=== PATIENT | female | born 1955 | race Caucasian/White ===

== ENCOUNTER 2019-03-31 13:08 | Emergency (ER) | payer MEDICARE ==
[~2019-03-31] VITALS: Ht 162.6 cm; Wt 81.0 kg
--- NOTE | 2019-03-31 14:22 | NUR ---
PROPERTY LOSS INSURANCE CLAIM ADJUSTER AT BEDSIDE ,SIGNIFICANT OTHER AT BEDSIDE .PT DENIES ANY CONCERN ,VITALS STABLE.
[2019-03-31] MEDS ORDERED: ketorolac trometh inj. 60 MG/2 ML VIAL IM ONE (14:40)
[2019-03-31 14:58] VITALS: BP 143/79
== END 2019-03-31 14:55 | disposition home or self-care (01) ==
LOC: ER 13:11
DX: M66.0 Rupture of popliteal cyst (principal); M25.562 Pain in left knee; M79.662 Pain in left lower leg
CPT/HCPCS: 93971; 96372; 99284; J1885

== ENCOUNTER 2021-03-07 10:35 | Emergency (ER) | payer MEDICARE ==
[~2021-03-07] VITALS: Ht 160 cm; Wt 84.5 kg
[2021-03-07 13:17] LABS: CLARITY,URINE CLEAR (Clear); COLOR,URINE Yellow (Yellow); UA COLLECTION TYPE CLN CATCH MIDSTREAM
[2021-03-07 13:18] LABS: GLUCOSE, URINE NEGATIVE (Neg); KETONES,URINE NEGATIVE (Neg); LEUKOCYTE ESTERASE ,URINE TRACE (Neg); NITRITES, URINE NEGATIVE (Neg); OCCULT BLOOD,URINE NEGATIVE (Neg); PROTEIN,URINE NEGATIVE (Neg); UROBILINOGEN,URINE 0.2 E.U/dL (0.2-1.0)
[2021-03-07 13:22] LABS: BASOPHILS % (AUTO) 1.1 % (0-1); EOSINOPHILS # (AUTO) 0.2 X10'3 (0-0.9); EOSINOPHILS % (AUTO) 3.8 % (0-6); HEMATOCRIT 37.3 % (35.0-45.0); HEMOGLOBIN 12.5 g/dl (12.0-16.0); LYMPHOCYTES # (AUTO) 1.5 X10'3 (1.1-4.8); LYMPHOCYTES % (AUTO) 34.8 % (21-51); MEAN CORPUSCULAR HEMOGLOBIN 28.6 PG (27.0-31.0); MEAN CORPUSCULAR HGB CONC 33.4 g/dL (33.0-36.5); MEAN CORPUSCULAR VOLUME 85.6 FL (78-98); MEAN PLATELET VOLUME 8.4 FL (7.4-10.4); MONOCYTES # (AUTO) 0.6 X10'3 (0-0.9); MONOCYTES % (AUTO) 12.8 % (2-12); NEUTROPHILS # (AUTO) 2.1 X10'3 (1.8-7.7); NEUTROPHILS % (AUTO) 47.5 % (42-75); PLATELET COUNT 257 X10'3 (140-440); RED BLOOD COUNT 4.35 X10'6 (4.20-5.60); RED CELL DISTRIBUTION WIDTH 13.9 % (11.5-14.5); WHITE BLOOD COUNT 4.4 X10'3 (4.5-11.0)
[2021-03-07 13:30] LABS: BACTERIA,URINE 2+ /HPF (Neg); RBC,URINE NONE SEEN /HPF (0-2); SQUAMOUS EPITHELIAL CELL,UR MODERATE /LPF (FEW); WBC,URINE 0-4 /HPF (0-4)
[2021-03-07 13:34] LABS: ALANINE AMINOTRANSFERASE 27 U/L (12-78); ALBUMIN/GLOBULIN RATIO 1.1 (1.1-1.5); ALKALINE PHOSPHATASE 88 IU/L (46-116); ANION GAP 7 (8-16); ASPARTATE AMINO TRANSFERASE 28 U/L (10-37); BILIRUBIN,TOTAL 0.3 MG/DL (0.1-1.0); BLOOD UREA NITROGEN 21 MG/DL (7-18); BUN/CREATININE RATIO 23.9 (6.6-38.0); CALCIUM 9.1 MG/DL (8.5-10.1); CHLORIDE 108 MMOL/L (99-107); CREATININE 0.88 MG/DL (0.40-0.90); GLUCOSE 114 MG/DL (70-104); LIPASE 144 U/L (73-393); POTASSIUM 3.6 MMOL/L (3.5-5.1); SODIUM 143 MMOL/L (135-145); TOTAL CARBON DIOXIDE 28.4 MMOL/L (24-32); TOTAL PROTEIN 7.6 G/DL (6.4-8.2); eGFR 64 ML/MIN
[2021-03-07] MEDS ORDERED: pantoprazole 40mg Tablet.DR PO ONE (15:40)
[2021-03-07] MEDS ORDERED: famotidine 20mg tablet PO ONE (15:40)
[2021-03-07] MEDS ORDERED: PANT-47 PO (16:23)
[2021-03-07 16:41] VITALS: BP 148/80
== END 2021-03-07 16:42 | disposition home or self-care (01) ==
LOC: ER 10:35
DX: K80.20 Calculus of gallbladder without cholecystitis without obstruction (principal); R07.81 Pleurodynia; R07.89 Other chest pain; R10.13 Epigastric pain; I10 Essential (primary) hypertension; E78.00 Pure hypercholesterolemia, unspecified; M19.90 Unspecified osteoarthritis, unspecified site; Z88.8 Allergy status to other drugs, medicaments and biological substances; Z79.899 Other long term (current) drug therapy; Z95.5 Presence of coronary angioplasty implant and graft
CPT/HCPCS: 36415; 71045; 76700; 80053; 81001; 83690; 83880; 84484; 85025; 87088; 93005; 99285

== ENCOUNTER 2021-06-03 10:46 | Emergency (ER) | payer MEDICARE ==
[~2021-06-03] VITALS: Ht 160 cm; Wt 81.0 kg
[~2021-06-03 10:46] MED LIST: PANT-47 PO
[2021-06-03 11:53] VITALS: BP 130/84
== END 2021-06-03 14:21 | disposition home or self-care (01) ==
LOC: ER 10:48
DX: I83.891 Varicose veins of right lower extremity with other complications (principal); M19.90 Unspecified osteoarthritis, unspecified site; E78.00 Pure hypercholesterolemia, unspecified; I10 Essential (primary) hypertension; Z98.890 Other specified postprocedural states; Z88.8 Allergy status to other drugs, medicaments and biological substances
CPT/HCPCS: 93971; 99284

== ENCOUNTER 2022-08-24 14:31 | Outpatient (CLI) | payer MEDICARE | END 2022-08-24 23:59 | disposition home or self-care (01) | LOC: RAD 14:31 | PROVIDERS: ATTEND Physician Assistant | DX: M47.26 Other spondylosis with radiculopathy, lumbar region (principal); M48.061 Spinal stenosis, lumbar region without neurogenic claudication; M43.16 Spondylolisthesis, lumbar region; M12.88 Other specific arthropathies, not elsewhere classified, other specified site; Z98.890 Other specified postprocedural states | CPT/HCPCS: 72131 ==

== ENCOUNTER 2023-03-24 03:34 | Emergency (ER) | payer MEDICARE ==
[~2023-03-24] VITALS: Ht 160 cm; Wt 87.3 kg
[2023-03-24 04:08] LABS: BASOPHILS # (AUTO) 0.1 X10'3 (0-0.2); BASOPHILS % (AUTO) 1.7 % (0-1); EOSINOPHILS # (AUTO) 0.4 X10'3 (0-0.9); EOSINOPHILS % (AUTO) 7.8 % (0-6); HEMATOCRIT 33.4 % (35.0-45.0); HEMOGLOBIN 10.6 g/dl (12.0-16.0); LYMPHOCYTES # (AUTO) 1.3 X10'3 (1.1-4.8); LYMPHOCYTES % (AUTO) 27.9 % (21-51); MEAN CORPUSCULAR HEMOGLOBIN 24.6 PG (27.0-31.0); MEAN CORPUSCULAR HGB CONC 31.6 g/dL (33.0-36.5); MEAN CORPUSCULAR VOLUME 77.7 FL (78-98); MONOCYTES # (AUTO) 1.1 X10'3 (0-0.9); NEUTROPHILS % (AUTO) 40.6 % (42-75); PLATELET COUNT 280 X10'3 (140-440); WHITE BLOOD COUNT 4.8 X10'3 (4.5-11.0)
[2023-03-24 04:15] LABS: ALANINE AMINOTRANSFERASE 23 U/L (12-78); ALBUMIN 3.9 G/DL (3.4-5.0); ALBUMIN/GLOBULIN RATIO 1.2 (1.1-1.5); ALKALINE PHOSPHATASE 87 IU/L (46-116); ANION GAP 8 (8-16); ASPARTATE AMINO TRANSFERASE 33 U/L (10-37); BILIRUBIN,TOTAL 0.3 MG/DL (0.1-1.0); BLOOD UREA NITROGEN 15 MG/DL (7-18); BUN/CREATININE RATIO 17.4 (10.0-20.0); CALCIUM 9.3 MG/DL (8.5-10.1); CHLORIDE 105 MMOL/L (99-107); CREATININE 0.86 MG/DL (0.40-0.90); GLUCOSE 119 MG/DL (70-104); POTASSIUM 3.3 MMOL/L (3.5-5.1); SODIUM 141 MMOL/L (135-145); TOTAL CARBON DIOXIDE 27.8 MMOL/L (24-32); TOTAL PROTEIN 7.2 G/DL (6.4-8.2); eCRCL 52 ML/MIN; eGFR 66 ML/MIN
[2023-03-24 04:24] LABS: PRO BRAIN NATRIURETIC PEPTIDE 40 PG/ML (0-125)
[2023-03-24 05:59] VITALS: BP 118/73; PULSE 80; RESP 16; TEMP 98.6; O2SAT 95
== END 2023-03-24 06:02 | disposition home or self-care (01) ==
LOC: ER 03:34
DX: B34.9 Viral infection, unspecified (principal); Z20.822 Contact with and (suspected) exposure to COVID-19
CPT/HCPCS: 36415; 71045; 80053; 83880; 84484; 85025; 87634; 87811; 93005; 99285